=== PATIENT | male | born 1980 | race Asian ===

== ENCOUNTER → 2022-08-31 | Outpatient (CLI) | payer OTHER | LOC: M PLARAD 13:18 | PROVIDERS: ATTEND Chiropractor | DX: S33.5XXA Sprain of ligaments of lumbar spine, initial encounter (principal); M99.03 Segmental and somatic dysfunction of lumbar region; S13.4XXA Sprain of ligaments of cervical spine, initial encounter; M99.01 Segmental and somatic dysfunction of cervical region ==

== ENCOUNTER 2023-05-07 11:10 | Day surgery (SDC) | payer OTHER ==
[~2023-05-07] VITALS: Ht 180.3 cm; Wt 101.2 kg
[~2023-05-07 11:10] MED LIST: NS 1,000 ML IV ONE
[2023-05-07] MEDS ORDERED: LIDOCAINE 2% 100MG/5ML SDV (FOR ANES.) As Ordered ONE (12:19)
[2023-05-07] MEDS ORDERED: fentaNYL 100 MCG/2 ML INJECTION As Ordered ONE (12:19)
[2023-05-07] MEDS ORDERED: propofoL 200 MG/20 ML VIAL As Ordered ONE (12:19)
[2023-05-07 13:26] VITALS: TEMP 97
[2023-05-07 13:46] VITALS: BP 127/88; O2SAT 99
== END 2023-05-07 14:16 | disposition home or self-care (01) ==
LOC: M SDC 11:10
PROVIDERS: ATTEND Internal Medicine Gastroenterology
DX: R13.10 Dysphagia, unspecified (principal); K20.0 Eosinophilic esophagitis; K29.50 Unspecified chronic gastritis without bleeding
CPT/HCPCS: 43239; 88305; J3010